=== PATIENT | female | born 1980 | race Caucasian/White ===

== ENCOUNTER 2016-11-16 14:26 | Emergency (ER) | payer SELFPAY ==
[~2016-11-16] VITALS: Wt 95.0 kg
[~2016-11-16 14:26] MED LIST: PROM6.25 PO
[2016-11-16] MEDS ORDERED: KETOROLAC 60 MG INJ IM STA (15:56)
--- NOTE | 2016-11-16 17:05 | RADRPT ---
PROCEDURE: RIGHT knee x-ray CLINICAL INDICATION: Trauma with right knee pain. TECHNIQUE: AP, lateral, sunrise and oblique views of the knee were obtained. COMPARISON: No. FINDINGS: The soft tissues and bony elements are normal. No joint space effusion is identified. There is no e vidence of an acute fracture or dislocation. IMPRESSION: Normal x-ray of the right knee. RPTAT:AAJJ Physician Rainer Date Time Electronically viewed and signed by Brayan You Physician on 11/16/2016 17:05 KEL/
[2016-11-16] MEDS ORDERED: HYDR-906 PO (17:14)
[2016-11-16] MEDS ORDERED: IBUP-1542 PO (17:14)
--- NOTE | 2016-11-26 10:31 | ERD ---
ER Documentation Chief Complaint Date/Time DATE: 11/26/16 TIME: 10:29 Chief Complaint SLIP AND FALL RIGHT KNEE PAIN AND LIMITED ROM , 2 WKS AGO . HPI This 36-year-old female presents with right knee pain after falling directly onto her kneecap 2 weeks ago.. She claims of persistent pain. She denies fevers , redness, bleeding. She has Swelling or shortness of breath. ROS All systems reviewed and are negative except as per history of present illness. Medications Home Meds Active Scripts Ibuprofen* (Motrin*) 600 Mg Tab, 600 MG PO Q6, #20 TAB Prov:GRACY BOATENG MD 11/16/16 Hydrocodone/Acetaminophen ([place] 5-325 Tablet) 1 Each Tablet, 1 TAB PO Q6H Y for PAIN, #12 TAB Prov:GRACY BOATENG MD 11/16/16 Promethazine w/Codeine* (Phenergan w/Codeine* Syrup) 5 Ml Syrup, 5 ML PO Q4H Y for COUGH, #4 OZ Prov:JENN LAWSON DO 07/23/15 Allergies Allergies: Coded Allergies: No Known Allergy (Unverified , 07/23/15) PMhx/Soc History of Surgery: Yes (ovary removal) Anesthesia Reaction: No Hx Neurological Disorder: No Hx Respiratory Disorders: No Hx Cardiac Disorders: No Hx Psychiatric Problems: No Hx Miscellaneous Medical Probl: Yes (cancer) Hx Alcohol Use: Yes (SOCIAL) Hx Substance Use: No Hx Tobacco Use: Yes Smoking Status: Never smoker Physical Exam Physical Exam Const: [] Alert, not ill-appearing. Head: Atraumatic Eyes: Normal Conjunctiva ENT: Normal External Ears, Nose and Mouth. Neck: Full range of motion..~ No meningismus. Resp: Clear to auscultation bilaterally Cardio: Regular rate and rhythm, no murmurs Abd: Soft, non tender, non distended. Normal bowel sounds Skin: No petechiae or rashes Back: No midline or flank tenderness Ext: No cyanosis, or edema. The some tenderness and mild swelling over the patella. There is no appreciable significant effusion, deformity's. His no erythema, warmth. There is no calf swelling or Homans sign is no deficits appreciated. Neur: Awake and alert Psych: Normal Mood and Affect Results 24 hrs Current Medications Medications (Trade) Dose Ordered Sig/Manisha Route PRN Reason Start Time Stop Time Status Last Admin Dose Admin Ketorolac Tromethamine (Toradol) 60 mg ONCE STAT IM 11/16/16 15:56 11/16/16 15:58 DC 11/16/16 16:09 Procedures/MDM X-ray right Knee 4V with patella Interpreted by me: Bones: [No fracture] Joints: [No dislocation] Foreign body: [None]. Impression-normal right knee x-ray Patient was given Toradol 60 modems IM. Patient was ministered crutches with crutch training. Patient presents with a knee immobilizer or brace and was replaced into her brace and was rest intact after brace. Patient presents with right knee pain after fall 2 weeks ago. She likely has a contusion. There Is no evidence of fracture, dislocation, DVT, septic arthritis , deficits. She'll be discharged home with instructions to follow up with her primary doctor possibly orthopedist for further evaluation. She should return sooner for fevers, redness, new symptoms. Departure Diagnosis: Primary Impression: Knee injury Encounter type: initial encounter Laterality: right Qualified Code: S89.91XA - Knee injury, right, initial encounter Condition: Stable Patient Instructions: Knee Sprain Referrals: TEOFILO CAMERON MD, HRAIR E MD Additional Instructions: X-rays normal. See orthopedist for further evaluation. Recheck for fevers, redness, new symptoms . May need authorization from primary doctor for orthopedist visit. GRACY BOATENG MD Nov 26, 2016 10:31
== END 2016-11-16 17:20 | disposition home or self-care (01) ==
LOC: FTE 14:26
DX: S89.91XA Unspecified injury of right lower leg, initial encounter (principal); W01.0XXA Fall on same level from slipping, tripping and stumbling without subsequent striking against object, initial encounter; Y92.9 Unspecified place or not applicable; Z85.9 Personal history of malignant neoplasm, unspecified; Z87.891 Personal history of nicotine dependence
CPT/HCPCS: 73564; 96372; 99284; J1885

== ENCOUNTER 2017-04-09 16:07 | Emergency (ER) | payer MEDICAID ==
[~2017-04-09] VITALS: Ht 154.9 cm; Wt 96.5 kg
[~2017-04-09 16:07] MED LIST changes: +HYDR-906 PO; +IBUP-1542 PO
[2017-04-09 16:10] VITALS: Ht 154.9 cm; Wt 96.5 kg
[2017-04-09 17:05] LABS: URINE BLOOD (Dip) POC Negative (NEGATIVE)
[2017-04-09 17:15] LABS: URINE BLOOD (Dip) POC Negative (NEGATIVE)
[2017-04-09] MEDS ORDERED: CEFU500T45 PO (17:19)
[2017-04-09] MEDS ORDERED: CEPH-443 PO (17:22)
[2017-04-09] MEDS ORDERED: LIDOCAINE 1% (MDV) 20 ML INJ SC ONE (17:30)
[2017-04-09] MEDS ORDERED: PIPER-TAZO 3.375 GM IV (PMX) 100 ML IVPB ONE (17:30)
[2017-04-09] MEDS ORDERED: CEFTRIAXONE 1 GM INJ IM ONE (17:30)
--- NOTE | 2017-04-09 17:49 | ERD ---
ER Documentation Chief Complaint Date/Time DATE: 04/09/17 TIME: 17:47 Chief Complaint 04/12 r.side flank pain x 2 days HPI This 37 [place] presents with right-sided low back pain for last 2 days. She feels that she had fever yesterday but did not take her temperature. She has urinary complaints of dysuria as well. She denies vaginal discharge. She has a significant lower abdominal pain. She denies any vomiting or chest pain or shortness of breath. ROS All systems reviewed and are negative except as per history of present illness. Medications Home Meds Active Scripts Cephalexin* (Keflex*) 500 Mg Capsule, 500 MG PO QID for 10 Days, CAP Prov:GRACY BOATENG MD 04/09/17 Ibuprofen* (Motrin*) 600 Mg Tab, 600 MG PO Q6, #20 TAB Prov:GRACY BOATENG MD 11/16/16 Hydrocodone/Acetaminophen ([place] 5-325 Tablet) 1 Each Tablet, 1 TAB PO Q6H Y for PAIN, #12 TAB Prov:GRACY BOATENG MD 11/16/16 Promethazine w/Codeine* (Phenergan w/Codeine* Syrup) 5 Ml Syrup, 5 ML PO Q4H Y for COUGH, #4 OZ Prov:JENN LAWSON DO 07/23/15 Discontinued Scripts Cefuroxime Axetil* (Cefuroxime Axetil*) 500 Mg Tablet, 500 MG PO BID for 7 Days , TAB Prov:GRACY BOATENG MD 04/09/17 Allergies Allergies: Coded Allergies: No Known Allergy (Unverified , 04/09/17) PMhx/Soc History of Surgery: Yes (ovary removal) Anesthesia Reaction: No Hx Neurological Disorder: No Hx Respiratory Disorders: No Hx Cardiac Disorders: No Hx Psychiatric Problems: No Hx Miscellaneous Medical Probl: Yes (cancer) Hx Alcohol Use: Yes (SOCIAL) Hx Substance Use: No Hx Tobacco Use: Yes Physical Exam Vitals Vital Signs Date Time Temp Pulse Resp B/P Pulse Ox O2 Delivery O2 Flow Rate FiO2 04/09/17 16:10 99.0 94 20 140/74 96 Physical Exam Const: [] Alert, not ill-appearing. Head: Atraumatic Eyes: Normal Conjunctiva ENT: Normal External Ears, Nose and Mouth. Neck: Full range of motion..~ No meningismus. Resp: Clear to auscultation bilaterally Cardio: Regular rate and rhythm, no murmurs Abd: Soft, non tender, non distended. Normal bowel sounds Skin: No petechiae or rashes Back: No midline or flank tenderness. Mild tenderness in the L4-L5 paraspinous muscles. Ext: No cyanosis, or edema Neur: Awake and alert Psych: Normal Mood and Affect Results 24 hrs Laboratory Tests Test 04/09/17 17:09 04/09/17 17:20 Bedside Urine pH (LAB) 6.0 6.0 Bedside Urine Protein (LAB) 1+ 1+ Bedside Urine Glucose (UA) 0.1% 0.1% Bedside Urine Ketones (LAB) Negative Negative Bedside Urine Blood Negative Negative Bedside Urine Nitrite (LAB) Positive Positive Bedside Urine Leukocyte Esterase (L 3+ 3+ Current Medications Medications (Trade) Dose Ordered Sig/Manisha Route PRN Reason Start Time Stop Time Status Last Admin Dose Admin Ceftriaxone Sodium (Rocephin) 1 gm ONCE ONCE IM 04/09/17 17:30 04/09/17 17:31 DC 04/09/17 17:39 Lidocaine VOLUME PER MD ONCE ONCE SC 04/09/17 17:30 04/09/17 17:31 DC 04/09/17 17:40 Piperacillin Sod/ Tazobactam Sod (Zosyn 3.375gm/ 100 ml (Pmx)) 100 ml @ 200 mls/hr ONCE ONCE IVPB 04/09/17 17:30 04/09/17 17:30 DC Procedures/MDM Urine shows positive leukocytes, nitrites and blood. It is negative. Patient presents with dysuria and low back pain. Given the uncertain cause of low back pain and possible fever she was given Rocephin 1 g IM. Patient treated with Keflex at home instructs for fluids. Patient is less return for fevers, vomiting , new or worsening symptoms. Current signs symptoms do not suggest appendicitis , sepsis, pedal or disease, aortic disease, acute abdomen, initial cause of present complaint.The patient was stable with no new complaints during the ER course. Clinically, there is no current evidence to suggest meningitis, sepsis, acute abdomen, pneumonia, acute coronary syndrome, pulmonary embolism, or any other emergent condition appearing to require further evaluation or hospitalization. The patient should certainly return for any new or worsening symptoms per the aftercare instructions. They should otherwise follow-up with her primary care doctor for reevaluation this week. Departure Diagnosis: Primary Impression: UTI (urinary tract infection) Urinary tract infection type: acute cystitis Hematuria presence: without hematuria Qualified Code: N30.00 - Acute cystitis without hematuria Additional Impression: Flank pain Condition: Stable Patient Instructions: Understanding Urinary Tract Infections (UTIs), Flank Pain , Uncertain Cause Additional Instructions: Urine shows signs of infection. Okay to continue current medications and new medications. Drink clear fluids at home. Return for fevers, worsening pain, vomiting, new or worsening symptoms. GRACY BOATENG MD Apr 09, 2017 17:49
== END 2017-04-09 18:23 | disposition home or self-care (01) ==
LOC: FTE 16:07
DX: N30.00 Acute cystitis without hematuria (principal); Z85.89 Personal history of malignant neoplasm of other organs and systems; Z87.891 Personal history of nicotine dependence
CPT/HCPCS: 81003; 96372; J0696; Z7502; Z7610